=== PATIENT | female | born 1950 | race Caucasian/White ===

== ENCOUNTER 2018-12-29 11:15 | Emergency (ER) | payer MEDICARE, BC ==
[2018-12-29] MEDS ORDERED: Ketorolac 60 MG/2 ML SDV IM ONE (12:13)
--- NOTE | 2018-12-29 12:17 | EDM.PDOC ---
ED HPI GENERAL MEDICAL PROBLEM - General Chief Complaint: Upper Extremity Injury/Pain Stated Complaint: FELL AND INJURED LEFT ARM Time Seen by Provider: 12/29/18 11:47 Source of Information: Reports: Patient, Family, RN Notes Reviewed History Limitations: Reports: No Limitations - History of Present Illness INITIAL COMMENTS - FREE TEXT/NARRATIVE: 68-year-old female presents emergency department today complaint of left arm pain, she recently injured herself while at the grocery store she had fallen outstretched hand she in the wrist elbow and shoulder left side doesn't a history of fractured right side from a similar event Left Wrist Pain Score (Numeric/FACES): 8 - Related Data Allergies Allergy/AdvReac Type Severity Reaction Status Date / Time clindamycin [From Cleocin] Allergy Rash Verified 12/29/18 11:42 erythromycin base Allergy Vomiting Verified 12/29/18 11:42 Iodinated Contrast- Oral and Allergy Rash Verified 12/29/18 11:41 IV Dye Home Meds: Home Meds Alendronate [Fosamax] 10 mg PO WEEKLY 12/29/18 [History] Esomeprazole Magnesium [Nexium] 40 mg PO DAILY 12/29/18 [History] Ferrous Sulfate [Iron] 325 mg PO DAILY 12/29/18 [History] Lisinopril 40 mg PO DAILY 12/29/18 [History] amLODIPine [Norvasc] 5 mg PO DAILY 12/29/18 [History] Past Medical History HEENT History: Reports: Impaired Vision Cardiovascular History: Reports: High Cholesterol, Hypertension Respiratory History: Reports: Asthma Gastrointestinal History: Reports: Other (See Below) Other Gastrointestinal History: bleeding ulcer [employer] History: Reports: , Spontaneous Musculoskeletal History: Reports: Fracture Other Musculoskeletal History: r wrist fx r elbow toe Hematologic History: Reports: Anemia, Blood Transfusion(s), Iron Deficiency - Infectious Disease History Infectious Disease History: Reports: Chicken Pox, Measles, Mumps - Past Surgical History HEENT Surgical History: Reports: Tonsillectomy GI Surgical History: Reports: Bariatric Procedure, Cholecystectomy Female Surgical History: Reports: Section Social & Family History - Tobacco Use Smoking Status *Q: Never Smoker Second Hand Smoke Exposure: No - Caffeine Use Caffeine Use: Reports: Coffee, Soda, Tea - Alcohol Use Days Per Week of Alcohol Use: 7 Number of Drinks Per Day: 1 Total Drinks Per Week: 7 - Recreational Drug Use Recreational Drug Use: No Review of Systems - Review of Systems Review Of Systems: See Below Musculoskeletal: Reports: Shoulder Pain, Joint Pain (Wrist and elbow pain) Skin: Reports: No Symptoms ED EXAM, GENERAL - Physical Exam Exam: See Below Free Text/Narrative:: Examination of the left arm reveal a small bruise of the wrist with an excoriation limited range of motion secondary to pain radial pulses +2 there is tenderness palpation of the elbow on tenderness palpation shoulder limited exam secondary to pain Exam Limited By: No Limitations General Appearance: Alert, WD/WN, No Apparent Distress ED TRAUMA EXTREMITY PROCEDURES - Splinting Left Upper Extremity Splint Site: Wrist Pre-Procedure NV Status: Normal Post-Procedure NV Status: Normal Splint Material: Fiberglass Splint Design: Sugar Tong Applied & Form Fitted By: Provider Provider Post-Splint Application NV Check: NV Status Normal, Good Position Complications: No Course - Vital Signs Last Recorded V/S: Last Vital Signs Temp 95.9 F 12/29/18 12:28 Pulse 69 12/29/18 13:39 Resp 15 12/29/18 13:39 BP 159/86 H 12/29/18 13:39 Pulse Ox 97 12/29/18 13:39 - Orders/Labs/Meds Meds: Medications Discontinued Medications Generic Name Dose Route Start Last Admin Trade Name Giovanny PRN Reason Stop Dose Admin Ketorolac Tromethamine 60 mg 12/29/18 12:13 12/29/18 12:28 Toradol IM 12/29/18 12:14 60 mg ONETIME ONE Administration Departure - Departure Time of Disposition: 13:53 Disposition: Home, Self-Care 01 Condition: Fair Clinical Impression: Fracture of styloid process of left ulna Qualifiers: Encounter type: initial encounter Fracture type: closed Fracture alignment: displaced Qualified Code(s): S52.612A - Displaced fracture of left ulna styloid process, initial encounter for closed fracture Distal radius fracture, left Qualifiers: Encounter type: initial encounter Fracture type: closed Fracture morphology: Colles' Qualified Code(s): S52.532A - Colles' fracture of left radius, initial encounter for closed fracture - Discharge Information Referrals: PCP,None [Primary Care Provider] - Forms: ED Department Discharge Additional Instructions: Use ibuprofen for baseline pain control use hydrocodone for breakthrough pain, remaining your splint until reevaluated by orthopedics, call or return to the emergency department worsening of symptoms - Assessment/Plan Plan: Assessment Acuity = acute Site and laterality = distal radius fracture impacted, distal styloid fracture left side Etiology = secondary to fall on outstretched hand Manifestations = none Location of injury = Home Lab values = x-ray of the shoulder and elbow were negative x-ray of the wrist described above Plan Discussed case with orthopedics on-call recommended sugar tong splint which she was placed and she will be provided x-ray films hydrocodone 5/325 one tab by mouth 3 times a day when necessary total #10 provided for pain control she'll follow up with orthopedics upon return home This note was dictated using [employer] voice recognition software please call with any questions on syntax or grammar.
--- NOTE | 2018-12-29 13:18 | CRLCR ---
INDICATION: Pain following fall TECHNIQUE: Three views left shoulder COMPARISON: None FINDINGS: Bones: Alignment is normal. No fractures or bone lesions. Joint spaces: Unremarkable. Soft tissues: Unremarkable. IMPRESSION: Negative. Dictated by Geovanni Saunders MD @ 12/29/2018 1:16:00 PM Dictated by: Geovanni Saunders MD @ 12/29/2018 13:16:06 (Electronically Signed)
--- NOTE | 2018-12-29 13:22 | CRLCR ---
INDICATION: Pain, fell TECHNIQUE: Left elbow 2 views. COMPARISON: None. FINDINGS: Bones: Alignment is normal. No fractures or bone lesions. Joint spaces: Unremarkable. Soft tissues: Unremarkable. IMPRESSION: Unremarkable left elbow. Dictated by: Geovanni Saunders MD @ 12/29/2018 13:20:32 (Electronically Signed)
--- NOTE | 2018-12-29 13:24 | CRLCR ---
INDICATION: Fall TECHNIQUE: Three views left wrist COMPARISON: None FINDINGS: Bones: Impacted distal radius fracture with intra-articular component. Ulnar styloid process fracture. Joint spaces: Unremarkable. Soft tissues: Unremarkable. IMPRESSION: Impacted distal radius fracture with intra-articular component. Displaced ulnar styloid process fracture. Dictated by Geovanni Saunders MD @ 12/29/2018 1:22:41 PM Dictated by: Geovanni Saunders MD @ 12/29/2018 13:22:48 (Electronically Signed)
== END 2018-12-29 14:21 | disposition home or self-care (01) ==
LOC: JP.ED 11:15
DX: S52.612A Displaced fracture of left ulna styloid process, initial encounter for closed fracture (principal); S52.532A Colles' fracture of left radius, initial encounter for closed fracture; I10 Essential (primary) hypertension; E78.00 Pure hypercholesterolemia, unspecified; Z79.899 Other long term (current) drug therapy; Z88.1 Allergy status to other antibiotic agents; Z91.041 Radiographic dye allergy status; W19.XXXA Unspecified fall, initial encounter; Y92.512 Supermarket, store or market as the place of occurrence of the external cause
CPT/HCPCS: 29125; 73030; 73070; 73110; 96372; 99283; J1885